=== PATIENT | male | born 1950 | race Caucasian/White ===

== ENCOUNTER 2024-03-20 06:55 | Day surgery (SDC) | payer MEDICARE, BC, SELFPAY ==
[2024-03-14 13:02] VITALS: BMI 23.1
[2024-03-20 07:51] VITALS: BP 149/77; PULSE 64; RESP 17; TEMP 36.2; O2SAT 97
[2024-03-20] MEDS: LACTATED RINGERS 1000ML 1,000 ML 50 ML IV (07:58)
--- NOTE | 2024-03-20 08:03 | EXP.ANES.CKL ---
[facility] Disclaimer: The information contained in this section may have been updated after the patient was seen, as this information can be updated by other users. Medical History Pacemaker HLD (hyperlipidemia) Hypertension Surgical History History of coronary artery stent placement Family History (Updated 03/20/24 @ 07:47 by Mehreen Schreiber RN) Father Family history of stroke Mother Family history of stroke Grandfather Family history of diabetes mellitus type II Social History Smoking Status: Never smoker alcohol intake: never substance use type: denies use current occupational status: retired Travel in the last 8 weeks: Outside the [facility] Anesthesia Checklist Patient Identification Patient Identification: Arm Band and Other: Structural Data Admitted From: Home Planned Operative Procedure/s: Colonoscopy Consent for Planned Operative Procedure(s) Verified: Yes Verified Documents: Surgical Consent and History and Physical NPO Status Verified Time NPO: 00:00 Additional verifications Patient : No Anesthesia Reactions: No Hx Blood Transfusions: No Blood Transfusion Reaction: No Cephalosporin Allergy: No Previous Colonoscopy: Yes Airway Assessment Mallampati Score:: Class I C-Spine Mobility Assessed: Yes TMJ Mobility Assessed: Yes Dentition: Good Dentition Neurological Assessment Level of Consciousness: Awake, Alert, Appropriate and Follows Commands Hx Seizures: No Numbness or tingling in extremities: No Anesthesia Plan Anesthesia Risk discussed: Yes ASA Class: III Anesthesia Type: MAC Preoperative Comments Pre-Operative Comments: History of bowel resection. pacemaker. stents.
[2024-03-20 08:39] VITALS: O2SAT 99
--- NOTE | 2024-03-20 08:45 | P.HP_ITS ---
History of Present Illness *Admission Date: 03/20/24 *Reason for visit:: Personal history of colon polyps *History of present illness: Mr. Rincon is a 74-year-old gentleman who is here for follow-up surveillance colonoscopy secondary to a personal history of adenomatous polyps. The exa mination is deemed medically necessary for surveillance colonoscopy. The patient has been seen, interviewed and examined prior to the procedure by both myself and the anesthesia provider. [facility] Disclaimer: The information contained in this section may have been updated after the patient was seen, as this information can be updated by other users. Medical History (Updated 03/20/24 @ 08:46 by Alexey Brewer II, MD) Pacemaker HLD (hyperlipidemia) Hypertension Surgical History History of coronary artery stent placement Family History (Updated 03/20/24 @ 07:47 by Mehreen Schreiber RN) Father Family history of stroke Mother Family history of stroke Grandfather Family history of diabetes mellitus type II Social History (Updated 03/20/24 @ 08:05 by Jose Juan Palomo CRNA) Smoking Status: Never smoker alcohol intake: never substance use type: denies use current occupational status: retired Travel in the last 8 weeks: Outside the continental [place] Have you lived/traveled outside US in past 30 days?: No Contact w/someone who lives/traveled outside US past 30 days?: No Exposure to someone with infectious disease in past 14 days?: No Do you have a fever (greater than 100.4 F or 38 C)?: No Have you tested positive for COVID-19: No Exposed to someone with COVID-19 in past 14 days?: No Do you have a sore throat?: No Do you have a cough?: No Do you have any weakness?: No Are you experiencing any nausea/vomitting?: No Do you have any diarrhea?: No Are you experiencing any unusual bleeding?: No Do you have any muscle aches/pain?: No Do you have any abdominal pain?: No Are you experiencing loss of taste or smell?: No Review of Systems Review of Systems Review of systems (narrative): Negative *Cardiovascular Comments: Negative *Gastrointestinal Comments: Negative *Genitourinary Comments: Negative *Musculoskeletal Comments: Negative *Neurologic Comments: Negative Meds Home Medications and Allergies Home Medications ?Medication ?Instructions ?Recorded ?Confirmed ?Type aspirin 81 mg chewable tablet 81 mg PO DAILY 03/20/24 03/20/24 History clobetasol 0.05 % topical cream 1 applic topical DAILY 03/20/24 03/20/24 History ezetimibe 10 mg tablet (Zetia) 10 mg PO DAILY 03/20/24 03/20/24 History lisinopril 10 mg tablet 10 mg PO DAILY 03/20/24 03/20/24 History nitroglycerin 0.4 mg sublingual 0.4 mg sublingual Q5M PRN Chest 03/20/24 03/20/24 History tablet Pain rosuvastatin 40 mg sprinkle capsule 40 mg PO DAILY 03/20/24 03/20/24 History New Prescriptions to Start Prescriptions: Allergies Allergy/AdvReac Type Severity Reaction Status Date / Time tetracycline Allergy Rash Verified 03/20/24 07:50 Exam Data for Last 24 hours Vital signs and Labs for Last 24 Hours: Temp Pulse Resp BP Pulse Ox O2 Del Method O2 Flow Rate 97.1 F L 64 17 149/77 H 97 Nasal Cannula 6 03/20/24 07:51 03/20/24 07:51 03/20/24 07:51 03/20/24 07:51 03/20/24 07:51 03/20/24 08:39 03/20/24 08:39 *Routine HEENT Exam Head: Present normocephalic Eye: Present EOMI and PERRL ENT: Present mucous membranes moist *Routine Neck Exam Neck: Present supple *Routine Respiratory Exam Respiratory: Present CTA bilaterally *Routine Cardiovascular Exam Cardiovascular: Present RRR *Routine Abdominal Exam Abdominal: Present soft and normoactive bowel sounds; Absent tenderness *Routine Rectal Exam Rectal:: deferred *Routine Genitalia Exam Genitalia:: deferred *Routine Extremities Exam Extremities: Absent cyanosis, clubbing or edema *Routine Skin Exam Skin: Present warm; Absent rash *Routine Neurological Exam Neurological: Present alert and oriented X3 Assessment and Plan *Assessment and plan (1) Personal history of adenomatous and serrated colon polyps: Status: Acute Category: Medical Code(s): Z86.0101 - Personal history of adenomatous and serrated colon polyps Plan A/P: 1. Personal history of adenomatous colon polyps is the preprocedural diagnosis. The patient will be anesthetized/sedated using MAC sedation. The patient has been seen and examined. Cardiac and lung assessment prior to the examination is stable. Proceed with planned surveillance colonoscopy
--- NOTE | 2024-03-20 08:57 | P.PCN_ITS ---
[facility] Procedure Note Date: 03/20/24 Time: 09:03 Procedure Note:: Colonoscopy Procedure Report: Colonoscopy with cold snare polypectomy Endoscopist: Alexey Brewer II, MD Referring physician: Erik Hidalgo MD, [address] [place], [place] [id number] Date of Procedure: March 20, 2024 Equipment: Olympus 190 variable stiffness pediatric colonoscope Sedation: MAC sedation Indication: Mr. Rincon is a 74-year-old gentleman who is here for follow-up surveillance colonoscopy. He does have a personal history of adenomatous polyps and last colonoscopy was 5 years ago. He also has a prior history of complicated diverticulitis and about a decade ago, he had diverting colostomy with sigmoid resection and subsequent Angelina anastomosis. The patient reports no abdominal pain, weight loss, change in his bowel habits or rectal bleeding. He reports no family history of colon cancer. Procedure: Prior to the procedure, a history and physical exam was performed, and patient's medications and allergies were reviewed. The risks, benefits and alternatives of the sedation and procedure were discussed with the patient. All questions were answered and informed consent was obtained. The patient was brought to the procedure room. Patient identification and proposed procedure were verified by the physician and the nurse. The patient was placed in a left lateral decubitus position and the scope was passed under direct vision. Throughout the procedure, the patient's blood pressure, pulse, and oxygen saturations were monitored continuously. The colonoscopy was accomplished without difficulty. The patient tolerated the procedure well. Findings: On digital rectal examination there was minor anal fibrotic stenosis. This was dilated manually/digitally. There were no external hemorrhoids. The prostate was 2+, smooth, soft, symmetric without nodules. The colonoscope was introduced through the anal canal to the rectum and advanced to the cecum. The ileocecal valve and appendiceal orifice were identified. The scope was advanced a short distance into the ileum which appeared grossly normal. The scope was then withdrawn into the colon. There were diverticuli scattered throughout the colon. The remaining cecum, ascending, transverse and descending colon were grossly normal. There was a single 3 mm polyp in the descending colon removed via cold snare polypectomy. The colocolonic anastomosis (end-to-side) was normal with normal anastomotic line and no ulceration. Upon retroflexion within the rectum there were 1-2 internal hemorrhoids. The preparation was excellent throughout with Paterson Preparation Score of 9. The cecal time was 12 minutes. Impression: 1. Diminutive 3 mm descending polyp 2. Pandiverticulosis 3. Mild fibrotic anal stenosis 4. Grade 1-2 internal hemorrhoids Plan: I will follow-up the polyp histology. We will discuss whether further s urveillance is warranted. I would encourage continued psyllium bulking fiber supplementation on a maintenance basis.
[2024-03-20 09:02] VITALS: BP 83/49; PULSE 62; RESP 18; TEMP 36.3; O2SAT 94
[2024-03-20 09:12] VITALS: BP 113/64; PULSE 60; RESP 18; O2SAT 94
[2024-03-20 09:22] VITALS: BP 108/75; PULSE 62; RESP 18; O2SAT 98
[2024-03-20 10:01] VITALS: BP 120/85; PULSE 63; RESP 18; O2SAT 98
== END 2024-03-20 10:02 | disposition home or self-care (01) ==
PROVIDERS: PCP Internal Medicine; Visit Provider Internal Medicine Gastroenterology
PROC: 0DJD8ZZ Inspection of Lower Intestinal Tract, Via Natural or Artificial Opening Endoscopic (ICD-10-PCS; CPT 45378; principal; 2024-03-20 08:30)
DX: K63.5 Polyp of colon (principal); K57.30 Diverticulosis of large intestine without perforation or abscess without bleeding; K64.8 Other hemorrhoids; K62.4 Stenosis of anus and rectum; Z86.0101 Personal history of adenomatous and serrated colon polyps
CPT/HCPCS: 45385; J7120